=== PATIENT | female | born 1940 | race Hispanic/Latino ===

== ENCOUNTER 2018-06-20 14:48 | Outpatient (RCR) | payer OTHER ==
[2018-06-12 15:24] LABS: BASOPHILS % 0.6 % (0.0-1.0); EOSINOPHILS # (AUTO) 0.2 (0.0-0.4); EOSINOPHILS % 3.4 % (0.0-6.0); HEMATOCRIT 27.9 % (34.2-44.1); HEMOGLOBIN 9.4 g/dL (12.0-16.0); LYMPHOCYTES # (AUTO) 0.9 (1.0-3.2); LYMPHOCYTES % 16.8 % (18.0-39.1); MEAN CORPUSCULAR HEMOGLOBIN 30.6 pg (28-32); MEAN CORPUSCULAR HGB CONC 33.7 g/dL (31-35); MEAN CORPUSCULAR VOLUME 90.9 fL (81-99); MONOCYTES # (AUTO) 0.4 (0.2-0.8); MONOCYTES % 7.6 % (4.4-11.3); NEUTROPHILS # (AUTO) 3.8 (2.1-6.9); NEUTROPHILS % 71.2 % (38.7-80.0); PLATELET COUNT 155 x10e3/uL (140-360); RED BLOOD COUNT 3.07 x10e6/uL (3.6-5.1); RED CELL DISTRIBUTION WIDTH 14.7 % (11.7-14.4)
[~2018-06-20 14:48] MED LIST: COLLAGENASE OINTMENT 30 GM TUBE ONE; LANTUS100 UNITS/ SC; LEVOTHYROXINE25 MCG PO; PLAVIX75 MG PO
[2018-06-20] MEDS ORDERED: LIDOCAINE VISC 2% SOLN 15 ML UDC ONE (15:19)
== END 2018-07-12 ==
LOC: WCC 14:48
PROVIDERS: ATTEND Family Medicine
DX: E11.621 Type 2 diabetes mellitus with foot ulcer (principal); L97.521 Non-pressure chronic ulcer of other part of left foot limited to breakdown of skin; L03.032 Cellulitis of left toe; Z74.01 Bed confinement status
CPT/HCPCS: 36415; 83036; 84134; 85025

== ENCOUNTER 2018-10-30 11:25 | Outpatient (RCR) | payer OTHER ==
[~2018-10-30 11:25] MED LIST changes: -COLLAGENASE OINTMENT 30 GM TUBE ONE
[2018-10-30] MEDS ORDERED: LIDOCAINE VISC 2% SOLN 15 ML UDC ONE (16:39)
[2018-10-30] MEDS ORDERED: MUPIROCIN 2% OINT 22 GM TUBE ONE (16:39)
== END 2018-11-11 ==
LOC: WCC 11:25
PROVIDERS: ATTEND Family Medicine
DX: E11.621 Type 2 diabetes mellitus with foot ulcer (principal); L97.529 Non-pressure chronic ulcer of other part of left foot with unspecified severity; Z74.01 Bed confinement status
CPT/HCPCS: 36415; 82948; 87071; 87075; 87205

== ENCOUNTER 2018-11-27 14:02 | Outpatient (RCR) | payer OTHER ==
[~2018-11-27 14:02] MED LIST changes: +LIDOCAINE VISC 2% SOLN 15 ML UDC ONE
[2018-11-27] MEDS ORDERED: MUPIROCIN 2% OINT 22 GM TUBE ONE (17:23)
[2018-11-27] MEDS ORDERED: LIDOCAINE VISC 2% SOLN 15 ML UDC ONE (17:23)
== END 2018-12-12 ==
LOC: WCC 14:02
PROVIDERS: ATTEND Family Medicine
DX: E11.621 Type 2 diabetes mellitus with foot ulcer (principal); E11.65 Type 2 diabetes mellitus with hyperglycemia; L97.529 Non-pressure chronic ulcer of other part of left foot with unspecified severity; Z74.01 Bed confinement status
CPT/HCPCS: 36415; 82948

== ENCOUNTER 2019-01-22 12:11 | Outpatient (RCR) | payer MEDICARE ==
[2019-01-15 17:24] LABS: HEMATOCRIT 33.4 % (34.2-44.1); MEAN CORPUSCULAR HEMOGLOBIN 31.2 pg (28-32); MEAN CORPUSCULAR HGB CONC 32.9 g/dL (31-35); MEAN CORPUSCULAR VOLUME 94.6 fL (81-99); PLATELET COUNT 167 x10e3/uL (140-360); RED BLOOD COUNT 3.53 x10e6/uL (3.6-5.1); RED CELL DISTRIBUTION WIDTH 14.2 % (11.7-14.4)
[2019-01-15 17:43] LABS: ALBUMIN 3.8 g/dL (3.5-5.0); ALBUMIN/GLOBULIN RATIO 1.1 (0.8-2.0); ANION GAP 15.1 mmol/L (8-16); CALCIUM 9.2 mg/dL (8.4-10.2); CREATININE, SERUM 2.88 mg/dL (0.57-1.11); POTASSIUM 4.1 mmol/L (3.5-5.1)
[2019-01-15 20:40] LABS: EOSINOPHILS % (MANUAL) 2 % (0-7); LYMPHOCYTES % (MANUAL) 21 % (19-48); MONOCYTES % (MANUAL) 2 % (3.4-9.0); NEUTROPHILS % (MANUAL) 72 % (40-74); RBC MORPHOLOGY COMMENT NORMAL
[2019-01-15 20:41] LABS: PLATELET ESTIMATE ADEQUATE; PLATELET MORPHOLOGY COMMENT NORMAL
[~2019-01-22 12:11] MED LIST changes: -LIDOCAINE VISC 2% SOLN 15 ML UDC ONE; +LIDOCAINE/PRILOCAINE 2.5-2.5% KIT ONE; +MUPIROCIN 2% OINT 22 GM TUBE ONE
[2019-01-22] MEDS ORDERED: LIDOCAINE/PRILOCAINE 2.5-2.5% KIT ONE (17:44)
== END 2019-02-09 ==
LOC: WCC 12:11
PROVIDERS: ATTEND Family Medicine
DX: E11.621 Type 2 diabetes mellitus with foot ulcer (principal); E11.65 Type 2 diabetes mellitus with hyperglycemia; L97.421 Non-pressure chronic ulcer of left heel and midfoot limited to breakdown of skin; L97.529 Non-pressure chronic ulcer of other part of left foot with unspecified severity; L03.115 Cellulitis of right lower limb; B96.89 Other specified bacterial agents as the cause of diseases classified elsewhere; Z74.01 Bed confinement status
CPT/HCPCS: 36415; 80053; 83036; 84134; 85007; 85027; 85651; 86140; 87071; 87075; 87205

== ENCOUNTER 2019-06-26 12:53 | Emergency (ER) | payer MEDICARE ==
[~2019-06-26] VITALS: Ht 147.3 cm; Wt 63.5 kg
[~2019-06-26 12:53] MED LIST changes: -LIDOCAINE/PRILOCAINE 2.5-2.5% KIT ONE; -MUPIROCIN 2% OINT 22 GM TUBE ONE
--- OUTSIDE RECORDS SUMMARY | 2019-06-26 12:55 | XMS REPORT ---
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 Allergies, Adverse Reactions, Alerts This patient has no known allergies or adverse reactions. Medications This patient has no known medications. Results Test Description Test Time Test Comments Text Results Atomic Results Result Comments Acid Fast Bacilli Culture w/ Stain 2019-04-02 18:02:41 Final Report (test code=Final Report) No Acid Fast Bacilli Isolated At 6 Weeks AFB Stain Report (test code=AFB Stain Report) No Acid Fast Bacilli Seen on Direct Smear Test performed by:[facility] [address] [place], [place] [address]Ojcarlftab Director: Helder Viregn, Ph.D. [facility] [id number] 14:06:30* Test Item Value Reference Range Comments Glucose POC (test code=Glucose POC) 127 mg/dL 70-115 Notify RN or MDIf you consider your patient critically ill, the Jeff-Accu Check Infrom II meter should not be used for Glucose determination. Draw a venous Glucose and send to the main Lab for analysis. POC [id number] 07:28:35* Test Item Value Reference Range Comments Glucose POC (test code=Glucose POC) 221 mg/dL 70-115 Notify RN or MDIf you consider your patient critically ill, the Jeff-Accu Check Infrom II meter should not be used for Glucose determination. Draw a venous Glucose and send to the main Lab for analysis. POC [id number] 20:53:08* Test Item Value Reference Range Comments Glucose POC (test code=Glucose POC) 207 mg/dL 70-115 If you consider your patient critically ill, the Jeff-Accu Check Infrom II meter should not be used for Glucose determination. Draw a venous Glucose and send to the main Lab for analysis. POC [id number] 17:10:01* Test Item Value Reference Range Comments Glucose POC (test code=Glucose POC) 194 mg/dL 70-115 If you consider your patient critically ill, the Jeff-Accu Check Infrom II meter should not be used for Glucose determination. Draw a venous Glucose and send to the main Lab for analysis. POC [id number] 11:52:04* Test Item Value Reference Range Comments Glucose POC (test code=Glucose POC) 256 mg/dL 70-115 If you consider your patient critically ill, the Jeff-Accu Check Infrom II meter should not be used for Glucose determination. Draw a venous Glucose and send to the main Lab for analysis. POC [id number] 07:59:37* Test Item Value Reference Range Comments Glucose POC (test code=Glucose POC) 288 mg/dL 70-115 If you consider your patient critically ill, the Jeff-Accu Check Infrom II meter should not be used for Glucose determination. Draw a venous Glucose and send to the main Lab for analysis. POC [id number] 20:29:28* Test Item Value Reference Range Comments Glucose POC (test code=Glucose POC) 203 mg/dL 70-115 Notify RN or MDIf you consider your patient critically ill, the Jeff-Accu Check Infrom II meter should not be used for Glucose determination. Draw a venous Glucose and send to the main Lab for analysis. Fungal Culture w/ [id number] 18:02:30* Test Item Value Reference Range Comments Final Report (test code=Final Report) No fungus isolated at 6 weeks. Fungal Stain Report (test code=Fungal Stain Report) No Yeast or Fungal Elements Seen POC [id number] 16:46:54* Test Item Value Reference Range Comments Glucose POC (test code=Glucose POC) 276 mg/dL 70-115 If you consider your patient critically ill, the Jeff-Accu Check Infrom II meter should not be used for Glucose determination. Draw a venous Glucose and send to the main Lab for analysis. POC [id number] 12:00:28* Test Item Value Reference Range Comments Glucose POC (test code=Glucose POC) 227 mg/dL 70-115 If you consider your patient critically ill, the Jeff-Accu Check Infrom II meter should not be used for Glucose determination. Draw a venous Glucose and send to the main Lab for analysis. POC [id number] 07:51:26* Test Item Value Reference Range Comments Glucose POC (test code=Glucose POC) 307 mg/dL 70-115 Notify RN or MDIf you consider your patient critically ill, the Jeff-Accu Check Infrom II meter should not be used for Glucose determination. Draw a venous Glucose and send to the main Lab for analysis. POC [id number] 20:48:27* Test Item Value Reference Range Comments Glucose POC (test code=Glucose POC) 248 mg/dL 70-115 Notify RN or MDIf you consider your patient critically ill, the Jeff-Accu Check Infrom II meter should not be used for Glucose determination. Draw a venous Glucose and send to the main Lab for analysis. POC [id number] 16:25:06* Test Item Value Reference Range Comments Glucose POC (test code=Glucose POC) 222 mg/dL 70-115 If you consider your patient critically ill, the Jeff-Accu Check Infrom II meter should not be used for Glucose determination. Draw a venous Glucose and send to the main Lab for analysis. POC [id number] 12:18:58* Test Item Value Reference Range Comments Glucose POC (test code=Glucose POC) 300 mg/dL 70-115 Notify RN or MDIf you consider your patient critically ill, the Jeff-Accu Check Infrom II meter should not be used for Glucose determination. Draw a venous Glucose and send to the main Lab for analysis. POC [id number] 07:07:54* Test Item Value Reference Range Comments Glucose POC (test code=Glucose POC) 198 mg/dL 70-115 Notify RN or MDIf you consider your patient critically ill, the Jeff-Accu Check Infrom II meter should not be used for Glucose determination. Draw a venous Glucose and send to the main Lab for analysis. POC [id number] 20:24:59* Test Item Value Reference Range Comments Glucose POC (test code=Glucose POC) 316 mg/dL 70-115 Notify RN or MDIf you consider your patient critically ill, the Jeff-Accu Check Infrom II meter should not be used for Glucose determination. Draw a venous Glucose and send to the main Lab for analysis. POC [id number] 16:51:21* Test Item Value Reference Range Comments Glucose POC (test code=Glucose POC) 274 mg/dL 70-115 If you consider your patient critically ill, the Jeff-Accu Check Infrom II meter should not be used for Glucose determination. Draw a venous Glucose and send to the main Lab for analysis. POC [id number] 11:01:46* Test Item Value Reference Range Comments Glucose POC (test code=Glucose POC) 258 mg/dL 70-115 If you consider your patient critically ill, the Jeff-Accu Check Infrom II meter should not be used for Glucose determination. Draw a venous Glucose and send to the main Lab for analysis. POC [id number] 07:31:48* Test Item Value Reference Range Comments Glucose POC (test code=Glucose POC) 237 mg/dL 70-115 If you consider your patient critically ill, the Jeff-Accu Check Infrom II meter should not be used for Glucose determination. Draw a venous Glucose and send to the main Lab for analysis. POC [id number] 20:12:48* Test Item Value Reference Range Comments Glucose POC (test code=Glucose POC) 301 mg/dL 70-115 Notify RN or MDIf you consider your patient critically ill, the Jeff-Accu Check Infrom II meter should not be used for Glucose determination. Draw a venous Glucose and send to the main Lab for analysis. POC [id number] 16:02:27* Test Item Value Reference Range Comments Glucose POC (test code=Glucose POC) 272 mg/dL 70-115 Notify RN or MDIf you consider your patient critically ill, the Jeff-Accu Check Infrom II meter should not be used for Glucose determination. Draw a venous Glucose and send to the main Lab for analysis. POC [id number] 11:45:49* Test Item Value Reference Range Comments Glucose POC (test code=Glucose POC) 168 mg/dL 70-115 Notify RN or MDIf you consider your patient critically ill, the Jeff-Accu Check Infrom II meter should not be used for Glucose determination. Draw a venous Glucose and send to the main Lab for analysis. POC [id number] 07:28:21* Test Item Value Reference Range Comments Glucose POC (test code=Glucose POC) 155 mg/dL 70-115 Notify RN or MDIf you consider your patient critically ill, the Jeff-Accu Check Infrom II meter should not be used for Glucose determination. Draw a venous Glucose and send to the main Lab for analysis. POC [id number] 20:29:18* Test Item Value Reference Range Comments Glucose POC (test code=Glucose POC) 237 mg/dL 70-115 Notify RN or MDIf you consider your patient critically ill, the Jeff-Accu Check Infrom II meter should not be used for Glucose determination. Draw a venous Glucose and send to the main Lab for analysis. POC [id number] 16:03:42* Test Item Value Reference Range Comments Glucose POC (test code=Glucose POC) 213 mg/dL 70-115 Notify RN or MDIf you consider your patient critically ill, the Jeff-Accu Check Infrom II meter should not be used for Glucose determination. Draw a venous Glucose and send to the main Lab for analysis. POC [id number] 11:12:20* Test Item Value Reference Range Comments Glucose POC (test code=Glucose POC) 197 mg/dL 70-115 Notify RN or MDIf you consider your patient critically ill, the Jeff-Accu Check Infrom II meter should not be used for Glucose determination. Draw a venous Glucose and send to the main Lab for analysis. Body Fluid Culture w/ Gram [id number] 08:26:18* Test Item Value Reference Range Comments Final Report (test code=Final Report) No growth at 24 hours. No growth at 48 hours. No growth at 3 days. No growth at 4 days. No growth at 5 days. No Anaerobes Isolated at 5 Days Gram Stain Report (test code=Gram Stain Report) Few White Blood Cells No organisms seen. XR Chest 1 View [id number] 06:06:25Patient: KRISTOPHER SMITH Date/Time03/25/2019 03:40 CDTReason for ExamET tube placementReportHISTORY: Female, 78 years of age with ET tube placementLocation code: [id number]: CHEST X-RAY, ONE VIEWCOMPARISON: 03/24/2019COMMENT: Frontal view is provided. ET tube, enteric tube, and right IJ dialysis catheter remain in good position. Previously noted right effusion no longer seen. No left effusion. Vascular congestion and mild perihilar infiltrates unchanged. Heart is enlarged and calcific plaque is seen in the aorta. No acute bony abnormalities.IMPRESSION:1. Right effusion no longer seen.2. Mild perihilar infiltrates stable. Final Dictated by: Krupa Logan LDictated DT/TM: 03/25/2019 6:03 amSigned by: Krupa Logan LSigned (Electronic Signature): 03/25/2019 6:06 amIR [id number] 13:43:34 Patient: KRISTOPHER SMITH am Date/Time03/24/2019 13:25 CDTReason for ExamEffusionReportULTRASOUND-GUIDED TH ORACENTESISHISTORY: Right pleural effusionPROCEDURE IN DETAIL:Following the expl anation of risks, benefits and alternative treatment options, informed written c onsent was obtained. The procedure was performed at bedside in the ICU with the patient in the left lateral decubitus position. The skin was sterilely prepped and draped. 1% Xylocaine was used for local anesthesia.Under ultrasound guidan ce, a 5 Frisian Canvaesis catheter needle was advanced into the right pleural space from a posterior access. Approximately 300 mL of isaac-colored fluid were drained. The catheter was removed, and a sterile dressing was applied.COMPLICAT IONS: None immediateIMPRESSION:Successful removal of 300 mL of fluid from the ri ght hemithorax without complication. A sample of fluid was sent for laboratory analysis per ordering physician request.Location: R16 Final Dictated by: MD Dominguez Adam FDictated DT/TM: 03/24/2019 1:42 pmSigned by: MD Dominguez Adam FSigned (Electronic Signature): 03/24/2019 1:43 pmXR Chest 1 View [id number] 08:14:01Patient: KRISTOPHER SMITH Date/Time03/24/2019 07:10 CDTReason for ExamET tube placementReportEXAM: XR Chest 1 View FrontalHISTORY: IntubationLocation code: R 16COMPARISON: Chest radiograph dated 03/23/2019FINDINGS: ET tube is stable in the midtrachea. NG tube can be followed to the stomach. Large-bore right IJ catheter tip is at the distal SVC.Small, somewhat loculated pleural effusion on the right lung base persist. Mild prominence of the central vasculature. Patchy infiltrates or atelectasis at the lung base. Partial interval clearing of hazy bilateral pulmonary infiltrates.Note of diffuse bony demineralization.IMPRESSION:1. Residual patchy infiltrate or atelectasis, left lung base.2. Residual somewhat loculated effusion, lateral right base.3. Partial interval clearing of hazy bilateral pulmonary infiltrates. Final Dictated by: MD Bunch Eniola FDictated DT/TM: 03/24/2019 7:50 amSigned by: MD Bunch Eniola FSigned (Electronic Signature): 03/24/2019 8:14 amUS Carotid Duplex [id number] 01:11:03Patient: KRISTOPHER SMITH Date/Time03/24/2019 00:54 CDTReason for ExamSyncopeReportAFTER HOURS SERVICE ON: 03/24/2019 1:08 AMCarotid UltrasoundLocation Code [id number]: SyncopeTechnique: Color flow Doppler and real-time awad-scale imaging of the carotid arteries with spectral analysis was performed.Findings:Examination is technically limited. Evaluation of the right carotid system could not the completed due to patient co ndition. Scattered calcified plaques are noted in the left ICA, CCA and ECA. Ant egrade flow is noted in both vertebral arteries. The peak systolic velocities ( cm/sec) and systolic ratios (ICA/CCA) are as follows:Left ICA 98Left CCA 130Left ECA 114Left ratio 0.75Impression:Scattered atherosclerotic plaques in the left carotid system without hemodynamically significant stenosis.Right carotid system could not be evaluated.* Plaque estimate ( diameter reduction ) with awad-scale and color Doppler US based on NASCET criteria in reference to peak systolic cindy ocity measurements. Final Dictated by: MD Fox Mohammad TDespinoza ated DT/TM: 03/24/2019 1:08 amSigned by: MD Fox Mohammad TShernan (Electr onic Signature): 03/24/2019 1:11 amXR Chest 1 View [id number] 08:37:43 Patient: KRISTOPHER SMITH am Date/Time03/23/2019 08:17 CDTReason for ExamET tube placementReportLocation co de: B5Hldwa 1 viewIndication:ET tube placement.Comparison: 03/22/2019, 2236 hours Findings:Heart and mediastinum unremarkable. Calcification at the aortic arch. T he costophrenic angles clear. Small right pleural effusion. Pulmonary vascular c ongestion with mild interstitial edema, most prominent in the right lower lobe.O ral endotracheal tube extends to the level of the aortic arch. NG tube extends i nto the stomach. Right jugular central venous catheter tip projects over the mid superior vena cava. Old healed left rib fractures.IMPRESSION: No change since . Final Dictated by: MD Stoner Daniel RDictated DT/TM: 0 03/23/2019 8:36 amSigned by: MD Stoner Daniel RSigned (Electronic Signature): 03/23/2019 8:37 amXR Chest 1 View [id number] 23:19:41Patient: KRISTOPHER SMITH Date/Time03/22/2019 22:55 CDTReason for ExamET tube placementReportEXAM: Portable chest one view.Location code: R1Oeavayk: ET tube placementCOMPARISON: None a vailable.COMMENT: AP portableview of the chest was obtained.There is interval pl acement of nasogastric tube which traverses the diaphragm. Endotracheal tube is seen below the thoracic inlet and above the moy, unchanged since study perfor med at 2230 hours.Diffuse interstitial opacities are redemonstrated. More conflu ent airspace opacities in the lung bases are unchanged. There are no pleural eff usions or pneumothorax.Dual-lumen right internal jugular central catheter is unc hanged.IMPRESSION:1. Interval placement of nasogastric tube which traverses the diaphragm. Endotracheal tube is in adequate positioning below the thoracic inlet and above the moy.2. Stable diffuse interstitial infiltrates/edema and bibas ilar airspace atelectasis/consolidation.. Final Dictated by: MD Hamilton Alan FDictated DT/TM: 03/22/2019 11:17 pmSigned by: MD Hamilton Alan FSigned (Electronic Signature): 03/22/2019 11:19 pmXR Chest 1 View [id number] 23:15:47Patient: KRISTOPHER SMITH Date/Time03/22/2019 22:42 CDTReason for ExamET tube placementReportSTUDY: Chest radiographHISTORY: ET tube placementCOMPARISON: 03/22/2019TECHNIQUE: Frontal view of the chest.SITE: [id number]:There is an endotracheal tube with tip 2.5 cm proximal to the moy. A dual-lumen right- sided internal jugular venous catheter is in unchanged position.The cardiac silhouette is stable in size. The aorta is atherosclerotic. There has been markedly improved aeration at the left lung. Again seen is a right basilar consolidation without interval change. Pulmonary vascular congestion persists. There are small pleural effusions.IMPRESSION:Interval retraction of an endotracheal tube with reexpansion of the left lung. No additional significant interval change. Final Dictated by: MD Pfeiffer Robert KDictated DT/TM: 03/22/2019 11:13 pmSigned by: MD Pfeiffer Robert KSigned (Electronic Signature): 03/22/2019 11:15 pmXR Chest 1 View [id number] 23:11:18 Patient: KRISTOPHER SMITH am Date/Time03/22/2019 21:30 CDTReason for ExamET tube placementReportEXAM: Lashell ble chest one view.Location code: W1Iggcrqs: ET tube placementCOMPARISON: 019 at 326COMMENT: AP portableview of the chest was obtained.There is interval p lacement of endotracheal tube with tip identified in the right mainstem bronchus . It requires retraction of the approximately 4 cm. There is complete opacificat ion of the left lung.Diffuse interstitial opacities are identified in the right lung.Cardiac silhouette is partially obscured. There is no definite pneumothorax . There is diffuse osteopenia.IMPRESSION:1. Endotracheal tube is identified in t he right mainstem bronchus and requires retraction.2. There is complete opacific ation of the left lung.3. Diffuse interstitial infiltrates in the right lung.Fin dings were given to the Dinora Dwyer , charge nurse in the ICU. Dr. Delacruz was already aware, and tube had already been retracted at time of interpretation. Final Dictated by: MD Hamilton Alan FDictated DT/TM: 03/22/2019 11:05 p mSigned by: MD Hamilton Alan FSigned (Electronic Signature): 03/22/2019 11:11 pm XR Chest 1 View [id number] 07:48:48Patient: KRISTOPHER SMITH Date/Time03/22/2019 03:35 CDTReason for ExamCoughReportCLINICAL HISTORY: Cough.Location: R16.FINDINGS: Comparison is made with previous study dated March 21, 2019. A portable AP view of the chest is dated March 22, 2019 at 0326 hours. There is stable mild cardiomegaly with prominent calcification at the aortic arch. No change in tubes or lines. Consolidation remains at the right lower chest with small to moderate right pleural effusion. Pronounced diffuse infiltrative changes within the right lung appear increased as do diffuse moderate infiltrative changes within the left lung. No acute skeletal or soft tissue abnormalities.IMPRESSION:1. Pronounced diffuse infiltrative changes within the right lung and moderate diffuse infiltrative changes within the left lung are increased from the previous study.2. Consolidation remains at the right lower chest with small to moderate right pleural effusion. Final Dictated by: MD Demarcus, Loida roe DT/TM: 03/22/2019 7:47 amSigned by: MD Demarcus, Anabel (Electronic Signature): 03/22/2019 7:48 amCT Angio [id number] 07:02:50Patient: KRISTOPHER SMITH Date/Time03/22/2019 06:50 CDTReason for ExamPulmonary embolism (PE)ReportAFTER HOURS SERVICE ON: 03/22/2019 7:00 AMCT Scan of the Chest With ContrastLocation C ode [id number]: Pulmonary embolism (PE)Technique: Scans were performed on a [facility] scanner post IV contrast. Coronal and sagittal reconstructions were perfor med.One or more of the following dose reduction techniques were used: Automated exposure control, adjustment of the mA and/or kV according to patient size, and/ or utilization of iterative reconstruction technique.FINDINGS:There are no filli ng defects in the pulmonary arteries to suggest a pulmonary embolism. No large c entral or saddle embolus is seen in the pulmonary trunk. No aortic aneurysm or d issection seen.There is myocardial megaly. There is no pericardial effusion. Ath erosclerosis noted in the aorta and coronary arteries.There is pulmonary vascula r congestion. Moderate right and small left pleural effusions are seen. Extensiv e compressive atelectasis is noted in the right lower lobe. There is a 7 mm nodu lar density in the right bronchus intermedius. There is no pneumothorax. There i s no cavitary lesion.There is a 3.5 cm heterogeneous left thyroid mass.IMPRESSIO N:No evidence of pulmonary embolism, aortic aneurysm or dissection.Moderate righ t and small left pleural effusions with dense compressive atelectasis in the rig ht lower lobe.Debris, aspiration or 7 mm nodule in the right bronchus intermediu s.Mild cardiomegaly.Mild pulmonary vascular congestion.3.5 cm left thyroid mass. Follow-up nonemergent ultrasound recommended. Final Dictated by: Roslyn bowman MD, Nichole TDictated DT/TM: 03/22/2019 7:00 amSigned by: Franco Fox Mohammad TSigned (Electronic Signature): 03/22/2019 7:02 amCT Chest w/o [id number] 19:54:49Patient: KRISTOPHER SMITH Date/Time03/21/2019 19:20 CDTReason for ExamChest painReportCT OF THE CHEST WITHOUT CONTRASTLocation: [id number] HISTORY: Chest painTECHNIQUE:Helical CT of the chest was performed without IV contrast without immediate complications. Exam performed without IV contrast has limited sensitivity for detection of mass or inflammation. Exam was performed on an up-to-date helical CT scanner. Coronal and sagittal images were reconstructed.This exam was performed according to our departmental dose - optimization program, which includes automatic exposure control, adjustment of MA and/or KV according to patient size, and or use of iterative reconstruction technique.DLP: 528 mGy*cmFINDINGS:There is a 3.7 cm mass in the left thyroid lobe causing mass effect effect on the trachea deviating it towards the right. There are small bilateral pleural effusions larger on the right. There are mild bilateral diffuse interstitial infiltrates. There is elevation of the right hemidiaphragm with right lower lobe atelectasis. There is senescent calcification of the proximal tracheobronchial tree. There is a dialysis cathet er in place with its tip at the distal SVC. There is no pneumothorax. There is moderate cardiomegaly. There is no pericardial effusion. There is extensive calc ific atherosclerosis including within the LAD.There is no supraclavicular, axill og, or hilar adenopathy. There are several mildly enlarged prevascular and para tracheal lymph nodes the largest measuring approximately 0.8 cm short axis likel y reactive.There has been prior cholecystectomy. There is extensive calcific ath erosclerosis.. Mild degenerative changes are present in the spine.IMPRESSION:1. Cardiomegaly. Extensive atherosclerosis.2. Mild to moderate bilateral diffuse in terstitial infiltrates with small bilateral pleural effusions. Right lower lobe compressive atelectasis.3. There is a 3.7 cm mass in the left thyroid lobe devia ting the trachea toward the right. Recommend correlation with TFTs and ultrasoun d of the thyroid gland. Final Dictated by: MD Andres Maria VDicta ted DT/TM: 03/21/2019 7:30 pmSigned by: MD Andres Maria VSigned (Electronic S ignature): 03/21/2019 7:54 pmXR Chest 1 View [id number] 18:04:47Patient: KRISTOPHER SMITH Date/Time03/21/2019 17:33 CDTReason for ExamDifficulty breathingReportChest 2 viewsLocation: N 13Clinical history difficulty breathingTechnique:Frontal and la teral views were obtained and are compared to study performed one hour prior.Fin dings:There is a moderate to large right-sided pleural effusion. There is a smal l left pleural effusion. There are bilateral mild to moderate interstitial infil trates. There is mild to moderate enlargement of cardiac silhouette. There is a diffuse osteopenia.IMPRESSION:1. Moderate bilateral interstitial infiltrates.2. Moderate to large right-sided pleural effusion, small left pleural effusion. Rec ommend confirmation with CT. Final Dictated by: MD Andres Maria V Dictated DT/TM: 03/21/2019 6:03 pmSigned by: MD Andres Maria VSigned (Electro giles Signature): 03/21/2019 6:04 pmXR Chest 1 View [id number] 17:02:55 Patient: KRISTOPHER SMITH am Date/Time03/21/2019 16:22 CDTReason for ExamDifficulty breathingReportChest, o ne viewLOCATION CODE: R 16HISTORY: DyspneaCOMPARISON: NoneFINDINGS:A dual-lumen right subclavian hemodialysis catheter is noted with tip in the SVC atrial junct ion. The cardiac silhouette is mildly enlarged. The right hemidiaphragm is raise d. Likely mild right pleural effusion although this is not well evaluated. No pn eumothorax. The bones are intact. 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 Consider a 2 view chest. Final Dictated by: MD Manzanares Roman PDictat ed DT/TM: 03/21/2019 5:01 pmSigned by: MD Manzanares Roman PSigned (Electronic Sign ature): 03/21/2019 5:02 pm
--- NOTE | 2019-06-26 14:38 | Diagnostic Imaging Report ---
Chest, 1 view, 06/26/2019. History: Right arm swelling. Comparison: None available. Findings: The cardiomediastinal silhouette and pulmonary vasculature are mildly prominent. Patchy bibasilar opacities are present, right greater than left. Right IJ tunneled dialysis catheter is present. Degenerative changes are noted in the right shoulder. There are no acute osseous or soft tissue abnormalities. Impression: Cardiomegaly, vascular congestion, and bibasilar opacities, right greater than left. Signed by: Hank Masterson on 06/26/2019 2:34 PM
[2019-06-26 14:47] LABS: BASOPHILS % 0.2 % (0.0-1.0); EOSINOPHILS # (AUTO) 0.2 (0.0-0.4); EOSINOPHILS % 3.2 % (0.0-6.0); HEMATOCRIT 41.4 % (34.2-44.1); HEMOGLOBIN 13.4 g/dL (12.0-16.0); LYMPHOCYTES # (AUTO) 1.7 (1.0-3.2); LYMPHOCYTES % 28.7 % (18.0-39.1); MEAN CORPUSCULAR HEMOGLOBIN 30.6 pg (28-32); MEAN CORPUSCULAR HGB CONC 32.4 g/dL (31-35); MEAN CORPUSCULAR VOLUME 94.5 fL (81-99); MONOCYTES # (AUTO) 0.3 (0.2-0.8); MONOCYTES % 5.1 % (4.4-11.3); NEUTROPHILS # (AUTO) 3.7 (2.1-6.9); NEUTROPHILS % 62.5 % (38.7-80.0); PLATELET COUNT 217 x10e3/uL (140-360); RED BLOOD COUNT 4.38 x10e6/uL (3.6-5.1); RED CELL DISTRIBUTION WIDTH 14.7 % (11.7-14.4)
[2019-06-26 15:12] LABS: ALBUMIN 3.9 g/dL (3.5-5.0); ALBUMIN/GLOBULIN RATIO 1.3 (0.8-2.0); ANION GAP 12.5 mmol/L (8-16); CALCIUM 9.1 mg/dL (8.4-10.2); CREATININE, SERUM 1.31 mg/dL (0.57-1.11); INR 0.86; PARTIAL THROMBOPLASTIN TIME 34.8 seconds (23.8-35.5); POTASSIUM 3.5 mmol/L (3.5-5.1); PROTHROMBIN TIME 12.2 seconds (11.9-14.5)
[2019-06-26 15:14] LABS: CREATINE KINASE MB 2.1 ng/mL (0-5.0)
[2019-06-26 15:42] VITALS: BP 160/80
== END 2019-06-26 15:43 | disposition home or self-care (01) ==
LOC: ER 12:53
DX: M25.511 Pain in right shoulder (principal); M79.89 Other specified soft tissue disorders; Z99.2 Dependence on renal dialysis; E11.22 Type 2 diabetes mellitus with diabetic chronic kidney disease; I12.9 Hypertensive chronic kidney disease with stage 1 through stage 4 chronic kidney disease, or unspecified chronic kidney disease; N18.9 Chronic kidney disease, unspecified; E78.5 Hyperlipidemia, unspecified; Z86.73 Personal history of transient ischemic attack (TIA), and cerebral infarction without residual deficits
CPT/HCPCS: 36415; 71045; 80053; 82550; 82553; 83880; 84484; 85025; 85610; 85730; 93005; 93971; 99284